=== PATIENT | female | born 1980 | race Caucasian/White ===

== ENCOUNTER 2016-10-16 18:16 | Emergency (ER) | payer OTHER ==
[~2016-10-16] VITALS: Ht 165.1 cm; Wt 130.0 kg
[~2016-10-16 18:16] MED LIST: AMOX500T2 PO; HYDR-4246 PO
--- OUTSIDE RECORDS SUMMARY | 2016-10-16 18:19 | XMS REPORT | Continuity of Care Document ---
Author Author [facility] Organization [facility] Address Unknown Phone Unavailable Support Name Relationship Address Phone CHANI DAVIS MD Caregiver [address] [place] [address] [place] [address] FARA FRAZIER Next Of Kin [address] [place] [address] Insurance Providers Payer Name Policy Number Subscriber Name Relationship Self Pay Shane Edwards 20 Self Advance Directives Directive Response Recorded Date/Time Advanced Directives Type None 04/10/14 1:16am Problems Medical Problems Problem Onset Date Status Dental caries Unknown Active Dental caries Unknown Active Medications Medication Dose Route Sig Days/Qty Instructions Order Date Discontinued Date Status Amoxicillin 1 Tab PO THREE TIMES A DAY 7 Days 04/10/14 Active Hydrocodone/Acetaminophen 1-2 Tab PO Every 6 Hours PRN PAIN 20 Qty 12/15 Active Social History Social History Problem Response Recorded Date/Time Smoking Status Current every day smoker 04/10/2014 1:50am Hx Substance Use No 04/10/2014 1:50am Hx Alcohol Use No 04/10/2014 1:50am Hospital Discharge Instructions No hospital discharge instructions. Plan of Care No plan of care. Functional Status Query Response Date Recorded Physical Hygiene Self April 10, 2014 1:50am Disabilities Visual April 10, 2014 1:50am Devices Used Glasses April 10, 2014 1:50am Dressing Self April 10, 2014 1:50am Ambulation Self April 10, 2014 1:50am Diet Self April 10, 2014 1:50am Mental Status Alert April 10, 2014 1:50am Disabilities Visual April 10, 2014 1:50am Devices Used Glasses April 10, 2014 1:50am Physical Hygiene Self April 10, 2014 1:50am Dressing Self April 10, 2014 1:50am Ambulation Self April 10, 2014 1:50am Diet Self April 10, 2014 1:50am Allergies, Adverse Reactions, Alerts Allergen Type Severity Reaction Status Last Updated No Known Allergies Active 04/10/14 Immunizations Name Given Type Hx Influenza Vaccination No Historical Hx Influenza Vaccination No Historical Vital Signs Acute Vital Signs Vital Response Date/Time Temperature (Fahrenheit) 97.1 deg F (96.8 - 99.1) Temperature (Calculated Celsius) 36.11695 degrees C (36.0 - 37.3) Pulse Rate (adult) 89 bpm (60 - 100) Respiratory Rate 18 breaths/min (10 - 20) O2 Sat by Pulse Oximetry 99 % (90 - 100) Blood Pressure 168/109 mm Hg Height 5 ft 4 in Weight 267 lb Body Mass Index 45.0 kg/m^2 Results No known relevant diagnostic tests, laboratory data and/or discharge summary. Procedures No known history of procedures. Encounters Encounter Location Date/Time Departed Emergency Room [facility] 04/10/14 1:11am Recent Diagnosis
--- OUTSIDE RECORDS SUMMARY | 2016-10-16 18:19 | XMS REPORT ---
Author Author Betzy Wick Organization [employer] Address Unknown Phone Unavailable Care Team Providers Care Sandblaster Supervisor Name Role Phone Betzy Wick CP Unavailable Allergies No Known Allergies Problems No Known Problems Medications No Known Medications Results No Known Results Summary Purpose [employer] Submission
[2016-10-16 18:22] VITALS: Ht 165.1 cm; Wt 130.0 kg
--- NOTE | 2016-10-16 19:10 | NUR ---
Aden fernandez in [facility] - 10/16/16 at 2019 by [email or web address] RETURN FROM XRAY
--- NOTE | 2016-10-16 19:30 | ERPDOC ---
Departure Disposition Decision Date: October 16, 2016 Disposition Decision Time: 20:25 (ELISEO MENESES APRN) Disposition: 01 DISCHARGED HOME, SELF-CARE Impression Impression (ELISEO MENESES APRN) Impression: Primary Impression: Right ankle sprain Encounter type: initial encounter Involved ligament of ankle: tibiofibular ligament Qualified Codes: S93.431A - Sprain of tibiofibular ligament of right ankle, initial encounter Severity: Mild (ELISEO MENESES APRN) Condition: Improved Seen By: Mid-level only (ELISEO MENESES APRN) Referrals: SATURNINO LUNSFORD DO (Family) Patient Instructions: Ankle Strain (ED) Problems/Meds/Labs Reviewed?: Yes Medications reviewed and manag: Yes (ELIESO MENESES APRN) Additional Instructions: Your x-rays do not show a fracture. You may take ibuprofen 800mg every 8 hours with food for pain. RICE: Rest ankle, ice, compress (arianna wrap) and elevated. Follow treatment plan (see discharge packet). Follow with your PCP in one week for re-evaluation if symptoms are not improving. Follow up care ordered?: Yes Mental Status: Alert, Oriented (ELISEO MENESES APRN) HPI General Chief Complaint: Lower Extremity Injury Stated Complaint: INJURED FOOT Time Seen by Provider: 19:29 Source: patient (ELISEO MENESES APRN) HPI Foot/Ankle Initial Comments 36-year-old female presents to ER with right lateral ankle pain and foot pain. Patient states that she rolled her ankle today at work around 1430. She has taken ibuprofen or Tylenol (unsure what). Has no pain until a she's flexing or extending ankle or bearing weight. Patient was able to ambulated from her car into the hospital. Duration: 4-6 hrs Pain Scale: Now: 0/10 (when not bearing weight ), Worst: 7/10 (when bearing weight) Location: right: ankle, foot Method of Injury: twisted Associated Symptoms: pain with extension, pain with flexion, pain with standing , swelling (mild), DENIES: bruising (ELISEO MENESES APRN) Allergies: Coded Allergies: No Known Allergies (Unverified , 10/16/16) Past History Past Medical History Pt denies signifigant PMH (ELISEO MENESES APRN) Surgical History Reproductive/: (ELISEO MENESES TRANSPORTATION WORKER) Family History Family PMH: FOUND: other (noncontributory) (ELISEO MENESES TRANSPORTATION WORKER) Vaccines Hx Influenza Vaccination: No (MELINA MENESESS Janice TRANSPORTATION WORKER) Social History # of Packs/Tins per Day: 0.3 Household Members: family Current Occupational Status: employed (MELINA MENESESS Janice TRANSPORTATION WORKER) Review of Systems Constitutional Constitutional: DENIES: chills, fever (MELINA MENESESS A TRANSPORTATION WORKER) Eyes General: DENIES: erythema, exudate Lids/Accessories: DENIES: erythema, swelling (MELINA MENESESS A TRANSPORTATION WORKER) ENMT Ears: DENIES: pain Sinuses: DENIES: congestion, rhinorrhea Mouth/Throat: DENIES: sore throat (MELINA MENESESS A TRANSPORTATION WORKER) Cardiovascular Cardiac: DENIES: chest pain (MELINA MENESESS A TRANSPORTATION WORKER) Pulmonary Respiratory: DENIES: cough, dyspnea (MELINA MENESESS A TRANSPORTATION WORKER) GI Upper Abdomen: DENIES: nausea, pain, vomiting Lower Abdomen: DENIES: diarrhea, pain (MELINA MENESESS A TRANSPORTATION WORKER) General: DENIES: pain (MELINA MENESESS A TRANSPORTATION WORKER) Musculoskeletal General: joint pain, see HPI, tenderness (MELINA MENESESS A TRANSPORTATION WORKER) Integumentary Skin: DENIES: color change, itching, rash (MELINA MENESESS A TRANSPORTATION WORKER) Neurological General: DENIES: ataxia, change in strength, numbness, paralysis/paresis, weakness (MELINA MENESESS A TRANSPORTATION WORKER) Psychiatric Psychiatric: DENIES: anxiety, depression, nervousness (MELINA MENESESS A TRANSPORTATION WORKER) Exam General General Nourishment: well nourished, well developed, adult, obese General Body Habitus: well groomed Vital Signs: Temperature: 98.6, Source: Oral, Heart Rate: 89, Respiratory Rate : 15, BP: 157/87, Pulse Oximetry: 97 Height (Feet): 5 Height (Inches): 5.00 (ELISEO MENESES A TRANSPORTATION WORKER) Fastrak Foot/Ankle Foot/Ankle : Leg: Right Leg: NOT FOUND: atrophy, contusion, deformity, discoloration, edema, numbness, swelling, tender, weakness Ankle: decreased ROM (due to pain), swelling (mild on lateral side of ankle) , tender lat. foot, tender lat. malleolus, NOT FOUND: anterior drawer sign, deformity, ecchymosis, numbness, tender med. malleolus, tender mid foot Foot: NOT FOUND: deformity, discoloration, numbness, swelling, tender 1st MTP joint, tender plantar fascia Toes: cap refill <2 sec ea toe, NOT FOUND: decreased ROM, deformity, ecchymosis, erythema, nail avulsion, subungual hematoma Dorsalis Pedis Pulse: 2+ (MENESESELISEO A TRANSPORTATION WORKER) Eyes (brief) Eyes Brief: found: EOMI (MENESESELISEO A TRANSPORTATION WORKER) ENMT (brief) ENMT Brief: NOT FOUND: nasal exudate, nasal swelling (MENESESELISEO A TRANSPORTATION WORKER) Neck (brief) Neck Brief: FOUND: trachea midline (MENESESELISEO A TRANSPORTATION WORKER) Respiratory (brief) Respiratory Brief: FOUND: clear all bridges, equal bilaterally, symmetrical ( MENESESELISEO A TRANSPORTATION WORKER) Cardiovascular (brief) Cardiac Brief: FOUND: regular rate, regular rhythm (MENESESELISEO A TRANSPORTATION WORKER) Integumentary (brief) Integumentary Brief: FOUND: dry, pink, warm (MENESESELISEO A TRANSPORTATION WORKER) Neurologic (brief) Neurological Brief: FOUND: motor-no gross deficits, sensory-no gross deficits ( MENESESELISEO A TRANSPORTATION WORKER) Neurologic RN Documented GCS Eye Opening: Verbal: Motor: Total: (MENESESELISEO A TRANSPORTATION WORKER) Psychiatric (brief) Psychiatric Brief: FOUND: alert, oriented (MENESESELISEO A TRANSPORTATION WORKER) Differential Diagnoses Considering: Contusion, Fracture, Sprain, Strain (GIDEONELISEO A TRANSPORTATION WORKER) Progress Progress Progress I discussed x-ray findings with patient. Patient declined Toradol other medication in the ED. I discussed treatment plan, follow up as needed with PCP and return precautions which patient verbalized understanding. Patient declined work excuse. (MELINA MENESESS A TRANSPORTATION WORKER) Progress 10/18/16 15:56 attempted to contact patient recently x-rays showing possible partial fracture of base of 5th metatarsal. Patient did not worm picker phone left message (RISHI WIGGINS MD) Xray Xray #1: Xray: Ankle R Interpretation: Normal (no acute osseous findings (Dr. Vzaquez)) Xray #2: Xray: Foot R Interpretation: Normal (no acute osseous findings (Dr. Vazquez)) (ELISEO MENESES APRN) ELISEO MENESES APRN October 16, 2016 19:30 RISHI WIGGINS MD October 18, 2016 15:56
--- NOTE | 2016-10-16 19:30 | NUR ---
PROVIDER CANDICE AMANDA IN ROOM TO SEE PT
[2016-10-16] MEDS ORDERED: No current meds (19:52)
--- OUTSIDE RECORDS SUMMARY | 2016-10-16 19:54 | XMS REPORT | Continuity of Care Document ---
Author Author [facility] Organization [facility] Address Unknown Phone Unavailable Support Name Relationship Address Phone CHANI DAVIS MD Caregiver [address] [place] [address] [place] [address] FARA FRAZIER Next Of Kin [address] [place] [address] Insurance Providers Payer Name Policy Number Subscriber [...] F (96.8 - 99.1) Temperature (Calculated Celsius) [phone] degrees C (36.0 - 37.3) Pulse Rate [...] Encounters Encounter Location Date/Time Departed Emergency Room [facility] 04/10/14 1:11am Recent Diagnosis
--- NOTE | 2016-10-16 20:10 | NUR ---
RETURN FROM XRAY
[2016-10-16 21:00] VITALS: BP 157/87; PULSE 89; RESP 15; TEMP 98.6; O2SAT 97
--- NOTE | 2016-10-16 21:00 | NUR ---
DEPART PT IS GIVNE DISMISSAL INSTRUCTIONS WITH VERBAL UNDERSTANDING. PT LEAVES AMBULATING SLOWLY, BUT ABLE TO BEAR WT ON INJURED FOOT
--- NOTE | 2016-10-17 08:08 | DI ---
Indication: ITS.REASON: pain over 5th metatarsal and toes 3-5 PROCEDURE: FOOT RIGHT 3 VIEWS: Encounter: Initial Comparison: None Findings: There is a subtle lucency in the base of the fifth metatarsal suspicious for a nondisplaced fracture. No additional acute fracture or dislocation seen. Impression: Probable nondisplaced fifth metatarsal base fracture. .
--- NOTE | 2016-10-17 08:11 | DI ---
Indication: ITS.REASON: pain over lateral malleolus PROCEDURE: ANKLE RIGHT 3 VIEW: Encounter: Initial Comparison: Foot radiographs from the same time Findings: Subtle oblique lucency in the base of the fifth metatarsal seen on multiple views suspicious for nondisplaced fracture. No additional acute fracture or dislocation seen. Ankle mortise is symmetric. Impression: Probable nondisplaced, possibly incomplete fifth metatarsal base fracture. .
--- NOTE | 2016-10-17 08:15 | NUR ---
RADIOLOGY DISCREPANCY RADIOLOGIST CALLED AND SPOKE WITH DR. TEJEDA. X-RAY READ 5TH [address] FRA[address]URE[address] TEJEDA ORDERED TO HAVE PATIENT RETURN AND HAVE CAM WALKING BOOT PLACED, AND HAVE PATIENT FOLLOW-UP WITH ORTHO. ATTEMPTED TO CALL PATIENT. NO ANSWER. VOICEMAIL LEFT.
--- NOTE | 2016-10-17 16:16 | NUR ---
PT FOLLOWUP NOTE Fit with M Cam Boot. Good CSM after boot applied, pt has steady gait with touch weight bearing. Discharge instructions inlcude the following: Wear boot Touch weight bearing until seen by ortho Make appointment with Dr Weeks at [facility] [place] [facility] Ibuprofen 40 mg PO TID with food Ice, rest elevate, until ortho evaluation. Pt verbalizes understanding of instructions and fit of boot.
== END 2016-10-16 21:00 | disposition home or self-care (01) ==
LOC: ED 18:16
DX: S93.431A Sprain of tibiofibular ligament of right ankle, initial encounter (principal); X50.1XXA Overexertion from prolonged static or awkward postures, initial encounter; Y93.9 Activity, unspecified; Y92.9 Unspecified place or not applicable; Y99.0 Civilian activity done for income or pay